=== PATIENT | female | born 1965 | race African-American/Black ===

== ENCOUNTER → 2018-03-21 | Outpatient (CLI) | payer OTHER ==
--- NOTE | 2018-03-21 23:26 | NUR ---
PATIENT LIST OF CURRENT MEDICATIONS PRESCRIPTIONS AND OVER THE COUNTER: TIMINOL DROPS,ALPHAGHAN DROPS, PAXIL 30MG, PRESNISONE 5MG, EXCEDRIN, ALLERGY MEDICATIONS OTC, HORMONE PATCH YURY. Addendum: 03/21/18 at 1678 by EREN ADANLT Amended: Links added.
== END | disposition home or self-care (01) ==
LOC: SLP 20:45
PROVIDERS: ATTEND Internal Medicine
DX: G47.33 Obstructive sleep apnea (adult) (pediatric) (principal)
CPT/HCPCS: 95810

== ENCOUNTER → 2018-03-28 | Outpatient (CLI) | payer OTHER | END | disposition home or self-care (01) | LOC: SLP 20:34 → EDUNIT# 04-27 20:30 | PROVIDERS: ATTEND Internal Medicine | DX: G47.33 Obstructive sleep apnea (adult) (pediatric) (principal) | CPT/HCPCS: 95811 ==